=== PATIENT | female | born 1945 | race Caucasian/White ===

== ENCOUNTER 2016-07-04 11:14 | Emergency (ER) | payer MEDICAID ==
[~2016-07-04 11:14] MED LIST: ACTOPLUS MET 151 TAB; ACTOS15 MG PO; ALEVE220 MG PO; GLUCOPHAGE500 MG PO; GLYBURIDE2.5 MG; GLYBURIDE2.5 MG PO; HUMULIN N100 U/ML; HUMULIN N100 U/ML SQ; INDERAL LA120 MG; INDERAL LA120 MG PO; INDERAL80 MG; LEVAQUIN500 MG PO; LISINOPRIL10 MG; LISINOPRIL5 MG; LISINOPRIL5 MG PO; NORCO 5/325 TAB1 TAB PO; NORVASC10 MG PO; PERCOGESIC; PERCOGESIC PO; TYLENOL PM EX-S1 TAB PO; VICODIN 5/500 T1 TAB PO; [UNRECOGNIZED DRUG - REMARK]
[2016-07-04] MEDS ORDERED: NORVASC10 M2 PO (11:35)
[2016-07-04] MEDS ORDERED: PROPRANOLOL HC120 M1 PO (11:36)
[2016-07-04] MEDS ORDERED: GLYBURIDE2.5 M2 PO (11:36)
[2016-07-04] MEDS ORDERED: PRINIVIL5 M1 PO (11:36)
[2016-07-04] MEDS ORDERED: HUMULIN N100 UNIT/3 SC (11:36)
[2016-07-04] MEDS ORDERED: NEURONTIN300 M1 PO (11:37)
[2016-07-04] MEDS ORDERED: METFORMIN HCL500 M4 PO (11:41)
[2016-07-04] MEDS ORDERED: HYDROCODON-ACE1 EA16 PO (11:41)
[2016-07-04] MEDS ORDERED: ULTRAM50 M1 PO (11:42)
[2016-07-04] MEDS ORDERED: TYLENOL325 M2 PO (11:42)
[2016-07-04] MEDS ORDERED: CALCIUM500 M4 CH (11:43)
[2016-07-04] MEDS ORDERED: SENEXON-S TABL1 EAC1 PO (11:43)
[2016-07-04 12:16] LABS: BASO % 0.3 % (0-2); EOS % 3.1 % (0-7); EOSINOPHIL ABSOLUTE COUNT 0.3 tho/cmm (0.0-0.7); HCT-HEMATOCRIT 33.4 % (34.0-49.0); HGB-HEMOGLOBIN 11.2 gm/dl (12.0-15.5); IMMATURE GRANULOCYTES ABSOLUTE 0.04 tho/cmm (0-0.03); IMMATURE GRANULOCYTES PERCENT 0.4 % (0-0.3); LYMPH % 15.7 % (20-45); LYMPH ABSOLUTE COUNT 1.7 tho/cmm (0.8-4.5); MCH (MEAN CORPUSCULAR HGB) 27.3 pg (28.0-32.0); MCHC MEAN CORPUSCULAR HGB CONC 33.5 % (32.0-36.0); MCV (MEAN CELL VOLUME) 81.5 fl (82.0-96.0); MONO % 7.2 % (0-12); MONOCYTE ABSOLUTE COUNT 0.8 tho/cmm (0.0-1.2); NEUTROPHIL ABSOLUTE COUNT 7.9 tho/cmm (1.6-8.0); NEUTROPHIL-AUTOMATED 7.9 tho/cmm (1.6-8.0); NEUTROPHILS % 73.3 % (40-80); PLATELET COUNT 225 tho/cmm (150-450); RED CELL DISTRIBUTION WIDTH 15.7 % (12.4-16.4); WHITE BLOOD COUNT 10.8 tho/cmm (4.0-10.0)
[2016-07-04 12:26] LABS: ANION GAP 13 mmol/L (0-20); BLOOD UREA NITROGEN 12 mg/dl (6-24); C-REACTIVE PROTEIN 1.5 mg/dl (0-0.9); CALCIUM 8.1 mg/dl (8.5-10.5); CARBON DIOXIDE-VENOUS 32 mmol/L (22-32); CHLORIDE 98 mmol/l (96-110); CREATININE 0.79 mg/dl (0.50-1.10); GLUCOSE 270 mg/dL (70-110); SODIUM 140 mmol/L (135-145); eGFR VALUE FOR BLACK 88 mL/Min
[2016-07-04] MEDS ORDERED: BACTRIM DS TAB1 EAC2 PO (12:53)
[2016-09-04] MEDS ORDERED: LASIX40 M1 PO (10:44)
[2016-09-04] MEDS ORDERED: POTASSIUM CHLO10 ME2 PO (10:44)
[2016-09-04] MEDS ORDERED: NORVASC10 M2 PO (10:44)
[2016-09-04] MEDS ORDERED: PRINIVIL5 M1 PO (10:44)
[2016-09-04] MEDS ORDERED: NEURONTIN300 M1 PO (10:45)
[2016-09-04] MEDS ORDERED: METFORMIN HCL500 M5 PO (10:45)
[2016-09-04] MEDS ORDERED: PROPRANOLOL HC120 M1 PO (10:45)
[2016-09-04] MEDS ORDERED: ANORO ELLIPTA1 EAC1 INH (10:46)
[2016-09-04] MEDS ORDERED: LIPITOR20 M1 PO (10:46)
[2016-09-04] MEDS ORDERED: HYDROCODON-ACE1 EA16 PO (10:48)
[2016-09-04] MEDS ORDERED: ULTRAM50 M1 PO (10:48)
[2016-09-04] MEDS ORDERED: TYLENOL325 M2 PO (10:49)
[2016-09-04] MEDS ORDERED: FAMOTIDINE40 M3 PO (10:50)
[2016-09-04] MEDS ORDERED: SENEXON-S TABL1 EAC1 PO (10:50)
[2016-09-04] MEDS ORDERED: PROAIR HFA8.5 GM INH (10:50)
[2016-09-04] MEDS ORDERED: HUMALOG100 UNIT/2 SC (10:51)
[2016-09-04] MEDS ORDERED: LASIX20 M1 PO (10:51)
[2016-09-04] MEDS ORDERED: BASAGLAR K100 UNIT/1 SC (11:40)
[2016-09-07] MEDS ORDERED: SULFAMYLON SOL250 M1 TOP (02:19)
[2016-09-07] MEDS ORDERED: BACTRIM DS TAB1 EAC2 PO (08:51)
[2016-11-06] MEDS ORDERED: [UNRECOGNIZED DRUG - SUPPLY] TP (11:40)
[2016-11-06] MEDS ORDERED: [UNRECOGNIZED DRUG - OTHER] TP (11:41)
[2016-11-06] MEDS ORDERED: TYLENOL325 M2 PO (11:42)
[2016-11-06] MEDS ORDERED: ANTACID CH (11:43)
[2016-11-06] MEDS ORDERED: AMITRIPTYLINE H50 M1 PO (11:46)
[2016-11-06] MEDS ORDERED: CLONAZEPAM0.5 M2 PO (11:46)
== END 2016-07-04 13:27 ==
LOC: EDMED 11:14
PROVIDERS: Nurse Practitioner Family
DX: S31.109A Unspecified open wound of abdominal wall, unspecified quadrant without penetration into peritoneal cavity, initial encounter (principal); E11.9 Type 2 diabetes mellitus without complications; I10 Essential (primary) hypertension; Z88.0 Allergy status to penicillin; Z88.1 Allergy status to other antibiotic agents; F20.9 Schizophrenia, unspecified; X58.XXXA Exposure to other specified factors, initial encounter

== ENCOUNTER 2016-07-10 05:32 | Observation (INO) | payer MEDICAID ==
[~2016-07-10 05:32] MED LIST changes: +BACTRIM DS TAB1 EAC2 PO; +CALCIUM500 M4 CH; +GLYBURIDE2.5 M2 PO; +HUMULIN N100 UNIT/3 SC; +HYDROCODON-ACE1 EA16 PO; +METFORMIN HCL500 M4 PO; +NEURONTIN300 M1 PO; +NORVASC10 M2 PO; +PRINIVIL5 M1 PO; +PROPRANOLOL HC120 M1 PO; +SENEXON-S TABL1 EAC1 PO; +TYLENOL325 M2 PO; +ULTRAM50 M1 PO
[2016-07-10] MEDS ORDERED: BACTRIM DS TAB1 EAC2 PO (05:47)
[2016-07-10 06:16] LABS: BASO % 0.2 % (0-2); EOSINOPHIL ABSOLUTE COUNT 0.3 tho/cmm (0.0-0.7); HCT-HEMATOCRIT 33.1 % (34.0-49.0); IMMATURE GRANULOCYTES ABSOLUTE 0.04 tho/cmm (0-0.03); IMMATURE GRANULOCYTES PERCENT 0.5 % (0-0.3); LYMPH % 13.3 % (20-45); LYMPH ABSOLUTE COUNT 1.1 tho/cmm (0.8-4.5); MCH (MEAN CORPUSCULAR HGB) 27.5 pg (28.0-32.0); MCHC MEAN CORPUSCULAR HGB CONC 33.2 % (32.0-36.0); MCV (MEAN CELL VOLUME) 82.8 fl (82.0-96.0); MEAN PLATELET VOLUME 9.1 cmc (9.4-12.4); MONO % 4.2 % (0-12); MONOCYTE ABSOLUTE COUNT 0.4 tho/cmm (0.0-1.2); NEUTROPHIL ABSOLUTE COUNT 6.5 tho/cmm (1.6-8.0); NEUTROPHIL-AUTOMATED 6.5 tho/cmm (1.6-8.0); NEUTROPHILS % 78.8 % (40-80); PLATELET COUNT 231 tho/cmm (150-450); RED CELL DISTRIBUTION WIDTH 16.2 % (12.4-16.4); WHITE BLOOD COUNT 8.3 tho/cmm (4.0-10.0)
[2016-07-10 06:31] LABS: ALB/GLOB RATIO 0.9 (0.8-2.0); ALBUMIN 3.3 g/dl (3.5-5.0); ALKALINE PHOSPHATASE 115 U/L (33-138); ALT/SGPT 24 U/L (12-78); ANION GAP 12 mmol/L (0-20); AST/SGOT 12 U/L (10-40); BILIRUBIN,TOTAL 0.6 mg/dl (0-1.5); BLOOD UREA NITROGEN 8 mg/dl (6-24); CARBON DIOXIDE-VENOUS 30 mmol/L (22-32); CHLORIDE 103 mmol/l (96-110); CREATININE 0.71 mg/dl (0.50-1.10); GLUCOSE 340 mg/dL (70-110); MAGNESIUM 1.3 mg/dl (1.8-2.6); POTASSIUM 3.5 mmol/L (3.7-5.1); SODIUM 141 mmol/L (135-145); eGFR VALUE FOR BLACK >90 mL/Min
[2016-07-10 17:13] LABS: BASO % 0.4 % (0-2); EOS % 3.8 % (0-7); EOSINOPHIL ABSOLUTE COUNT 0.3 tho/cmm (0.0-0.7); HCT-HEMATOCRIT 33.7 % (34.0-49.0); HGB-HEMOGLOBIN 11.1 gm/dl (12.0-15.5); IMMATURE GRANULOCYTES ABSOLUTE 0.03 tho/cmm (0-0.03); IMMATURE GRANULOCYTES PERCENT 0.4 % (0-0.3); LYMPH % 22.5 % (20-45); LYMPH ABSOLUTE COUNT 1.8 tho/cmm (0.8-4.5); MCH (MEAN CORPUSCULAR HGB) 27.3 pg (28.0-32.0); MCHC MEAN CORPUSCULAR HGB CONC 32.9 % (32.0-36.0); MEAN PLATELET VOLUME 9.2 cmc (9.4-12.4); MONO % 5.9 % (0-12); MONOCYTE ABSOLUTE COUNT 0.5 tho/cmm (0.0-1.2); NEUTROPHIL ABSOLUTE COUNT 5.5 tho/cmm (1.6-8.0); NEUTROPHIL-AUTOMATED 5.5 tho/cmm (1.6-8.0); PLATELET COUNT 225 tho/cmm (150-450); RED BLOOD COUNT 4.06 mil/cmm (4.00-5.20); RED CELL DISTRIBUTION WIDTH 16.1 % (12.4-16.4); WHITE BLOOD COUNT 8.2 tho/cmm (4.0-10.0)
[2016-07-10 17:40] LABS: ALB/GLOB RATIO 0.8 (0.8-2.0); ALBUMIN 3.2 g/dl (3.5-5.0); ALKALINE PHOSPHATASE 103 U/L (33-138); ALT/SGPT 22 U/L (12-78); ANION GAP 15 mmol/L (0-20); AST/SGOT 14 U/L (10-40); BILIRUBIN,TOTAL 0.5 mg/dl (0-1.5); BLOOD UREA NITROGEN 12 mg/dl (6-24); CALCIUM 8.2 mg/dl (8.5-10.5); CARBON DIOXIDE-VENOUS 28 mmol/L (22-32); CHLORIDE 101 mmol/l (96-110); CREATININE 1.02 mg/dl (0.50-1.10); GLUCOSE 328 mg/dL (70-110); POTASSIUM 3.3 mmol/L (3.7-5.1); SODIUM 141 mmol/L (135-145); eGFR VALUE FOR BLACK 65 mL/Min
[2016-07-10 17:47] LABS: PROCALCITONIN <0.05 ng/ml (0.05-0.09)
[2016-07-11 05:56] LABS: ANION GAP 17 mmol/L (0-20); BLOOD UREA NITROGEN 10 mg/dl (6-24); CALCIUM 8.6 mg/dl (8.5-10.5); CARBON DIOXIDE-VENOUS 27 mmol/L (22-32); CHLORIDE 100 mmol/l (96-110); GLUCOSE 365 mg/dL (70-110); MAGNESIUM 2.2 mg/dl (1.8-2.6); POTASSIUM 3.5 mmol/L (3.7-5.1); SODIUM 140 mmol/L (135-145); eGFR VALUE FOR BLACK >90 mL/Min
[2016-07-12 06:02] LABS: ANION GAP 11 mmol/L (0-20); BLOOD UREA NITROGEN 11 mg/dl (6-24); CALCIUM 8.3 mg/dl (8.5-10.5); CARBON DIOXIDE-VENOUS 31 mmol/L (22-32); CHLORIDE 103 mmol/l (96-110); CHOLESTEROL 222 mg/dl (120-200); GLUCOSE 231 mg/dL (70-110); HDL CHOLESTEROL 43 mg/dl (40-60); LDL CHOLESTEROL 129 mg/dl (0-99); POTASSIUM 3.1 mmol/L (3.7-5.1); SODIUM 142 mmol/L (135-145); TRIGLYCERIDES 251 mg/dl (<149); VLDL 50 mg/dl (0-30); eGFR VALUE FOR BLACK >90 mL/Min
[2016-07-12] MEDS ORDERED: ZESTRIL10 M3 PO (11:53)
[2016-07-12] MEDS ORDERED: BACTRIM DS TAB1 EAC2 PO (11:53)
[2016-07-12] MEDS ORDERED: POTASSIUM CHLO20 ME3 PO (11:55)
[2016-07-12] MEDS ORDERED: PREDNISONE10 M1 PO (11:57)
[2016-07-12] MEDS ORDERED: LASIX40 M1 PO (12:01)
[2016-07-12] MEDS ORDERED: LIPITOR20 M1 PO (12:02)
[2016-07-12] MEDS ORDERED: ANORO ELLIPTA1 EAC1 INH (12:04)
[2016-09-04] MEDS ORDERED: LASIX40 M1 PO (10:44)
[2016-09-04] MEDS ORDERED: NORVASC10 M2 PO (10:44)
[2016-09-04] MEDS ORDERED: PRINIVIL5 M1 PO (10:44)
[2016-09-04] MEDS ORDERED: POTASSIUM CHLO10 ME2 PO (10:44)
[2016-09-04] MEDS ORDERED: PROPRANOLOL HC120 M1 PO (10:45)
[2016-09-04] MEDS ORDERED: METFORMIN HCL500 M5 PO (10:45)
[2016-09-04] MEDS ORDERED: NEURONTIN300 M1 PO (10:45)
[2016-09-04] MEDS ORDERED: LIPITOR20 M1 PO (10:46)
[2016-09-04] MEDS ORDERED: ANORO ELLIPTA1 EAC1 INH (10:46)
[2016-09-04] MEDS ORDERED: HYDROCODON-ACE1 EA16 PO (10:48)
[2016-09-04] MEDS ORDERED: ULTRAM50 M1 PO (10:48)
[2016-09-04] MEDS ORDERED: TYLENOL325 M2 PO (10:49)
[2016-09-04] MEDS ORDERED: FAMOTIDINE40 M3 PO (10:50)
[2016-09-04] MEDS ORDERED: PROAIR HFA8.5 GM INH (10:50)
[2016-09-04] MEDS ORDERED: SENEXON-S TABL1 EAC1 PO (10:50)
[2016-09-04] MEDS ORDERED: LASIX20 M1 PO (10:51)
[2016-09-04] MEDS ORDERED: HUMALOG100 UNIT/2 SC (10:51)
[2016-09-04] MEDS ORDERED: BASAGLAR K100 UNIT/1 SC (11:40)
[2016-09-07] MEDS ORDERED: SULFAMYLON SOL250 M1 TOP (02:19)
[2016-09-07] MEDS ORDERED: BACTRIM DS TAB1 EAC2 PO (08:51)
[2016-11-06] MEDS ORDERED: [UNRECOGNIZED DRUG - SUPPLY] TP (11:40)
[2016-11-06] MEDS ORDERED: [UNRECOGNIZED DRUG - OTHER] TP (11:41)
[2016-11-06] MEDS ORDERED: TYLENOL325 M2 PO (11:42)
[2016-11-06] MEDS ORDERED: ANTACID CH (11:43)
[2016-11-06] MEDS ORDERED: CLONAZEPAM0.5 M2 PO (11:46)
[2016-11-06] MEDS ORDERED: AMITRIPTYLINE H50 M1 PO (11:46)
== END 2016-07-12 14:20 | disposition home health service (06) ==
LOC: EDMED 05:32 → EMR2 11:24 → PCUA 15:03
PROVIDERS: Emergency Medicine; Physician Assistant; ADMIT Internal Medicine Cardiovascular Disease
DX: E87.70 Fluid overload, unspecified (principal); E11.9 Type 2 diabetes mellitus without complications; J96.01 Acute respiratory failure with hypoxia; I11.0 Hypertensive heart disease with heart failure; I50.9 Heart failure, unspecified; K43.2 Incisional hernia without obstruction or gangrene; S31.109A Unspecified open wound of abdominal wall, unspecified quadrant without penetration into peritoneal cavity, initial encounter; I34.0 Nonrheumatic mitral (valve) insufficiency; I07.1 Rheumatic tricuspid insufficiency; Z79.2 Long term (current) use of antibiotics; Z79.4 Long term (current) use of insulin; Z79.899 Other long term (current) drug therapy; Z88.0 Allergy status to penicillin; Z88.1 Allergy status to other antibiotic agents; Z88.5 Allergy status to narcotic agent; Z88.8 Allergy status to other drugs, medicaments and biological substances; Z91.040 Latex allergy status; Z91.048 Other nonmedicinal substance allergy status; Z87.891 Personal history of nicotine dependence; Z82.49 Family history of ischemic heart disease and other diseases of the circulatory system; Z90.49 Acquired absence of other specified parts of digestive tract; Z90.710 Acquired absence of both cervix and uterus; Z95.1 Presence of aortocoronary bypass graft; Z98.890 Other specified postprocedural states; X58.XXXA Exposure to other specified factors, initial encounter
CPT/HCPCS: A9500; G0378; G8978-GP-CI; G8978-GP-CJ; G8979-GP-CI; G8979-GP-CJ; G8987-GO-CJ; G8988-GO-CI; G8989-GO-CJ; J1650; J1815; J1940; J2785; J3475; J7512; Q9967